=== PATIENT | male | born 1960 | race Two or more races ===

== ENCOUNTER 2017-07-31 19:21 | Emergency (ER) | payer MEDICAID ==
[~2017-07-31] VITALS: Ht 175.3 cm; Wt 82.1 kg
--- NOTE | 2017-07-31 19:30 | NUR ---
PT BIBRA. 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 RR EVEN AND UNLABORED. NO SOB NOTED. NAD NOTE.D NO NVD AT THIS TIME. PT GOWNED AND PLACED ON MONITOR. DR. WALL AT BEDSIDE FOR EVAL. BOBBY EMT AT BEDSIDE TO TRANSLATE.
--- NOTE | 2017-07-31 19:41 | NUR ---
BLOOD DRAWN. CALLED LAB FOR METHODS SPECIALIST.
[2017-07-31 19:51] LABS: BASOPHILS % (AUTO) 0.9 % (0.0-2.0); EOSINOPHILS # (AUTO) 0.1 /CMM (0.0-0.7); EOSINOPHILS % (AUTO) 1.1 % (0.0-6.0); HEMATOCRIT 44 % (39-51); HEMOGLOBIN 14.6 g/dL (13.5-17.5); LYMPHOCYTES # (AUTO) 1.8 /CMM (0.8-4.8); LYMPHOCYTES % (AUTO) 37.2 % (20.0-44.0); MEAN CORPUSCULAR HEMOGLOBIN 29 PG (26.0-33.0); MEAN CORPUSCULAR HGB CONC 33 g/dl (31.0-36.0); MEAN CORPUSCULAR VOLUME 87 fL (80-96); MONOCYTES # (AUTO) 0.4 /CMM (0.1-1.30); NEUTROPHILS # (AUTO) 2.6 /CMM (1.8-8.9); NEUTROPHILS % (AUTO) 51.8 % (43.0-81.0); PLATELET COUNT (AUTO) 194 /CMM (150-450); RDW COEFFICIENT OF VARIATION 13.4 (11.5-15.0); RED BLOOD CELL COUNT(AUTO) 5.11 MIL/uL (4.5-6.0); WHITE BLOOD COUNT (AUTO) 4.9 K/uL (4.3-11.0)
[2017-07-31] MEDS ORDERED: IV NS 0.9% 1,000 ML BAG IV ONE (20:00)
[2017-07-31 20:02] LABS: CALCIUM, SERUM 9.5 mg/dL (8.5-10.1); CARBON DIOXIDE 27 mmol/L (21-32); CHLORIDE 103 mmol/L (98-107); CREATININE 1.1 mg/dL (0.6-1.3); GLUCOSE 157 mg/dL (74-106); POTASSIUM 3.6 mmol/L (3.5-5.1); SODIUM SERUM 138 mmol/L (136-145); UREA NITROGEN, BLOOD 18 mg/dL (7-18)
[2017-07-31 20:08] LABS: ALANINE AMINOTRANSFERASE 14 U/L (12-78); ALBUMIN 3.8 g/dL (3.4-5.0); ALKALINE PHOSPHATASE 76 U/L (46-116); ASPARTATE AMINOTRANSFERASE 14 U/L (15-37); BILIRUBIN,DIRECT 0.1 mg/dL (0.0-0.2); BILIRUBIN,TOTAL 0.5 mg/dL (0.2-1.0); TOTAL PROTEIN, SERUM 7.7 g/dL (6.4-8.2)
[2017-07-31 20:10] LABS: TROPONIN I < 0.017 ng/mL (0.00-0.056)
--- NOTE | 2017-07-31 20:12 | NUR ---
CODE STROKE PAGED.
--- NOTE | 2017-07-31 20:12 | NUR ---
PT TO CT.
--- NOTE | 2017-07-31 20:13 | NUR ---
[facility] CALLED AND SPOKE TO
[2017-07-31] MEDS ORDERED: IOHEXOL-350 100 ML VIAL IV ONE (20:16)
[2017-07-31] MEDS ORDERED: IV NS 0.9% 250 ML IV ONE (20:16)
--- NOTE | 2017-07-31 20:32 | NUR ---
PT RETURNED FROM CT
--- NOTE | 2017-07-31 20:37 | NUR ---
DR. WALL AT BEDSIDE SPEAKING TO PT SON
[2017-07-31] MEDS ORDERED: INTE22PE SQ (21:08)
--- NOTE | 2017-07-31 21:08 | NUR ---
PER FAMILY WILL BEING HIS HOME MEDICATION TOMORROW WHEN THEY VISIT.
--- NOTE | 2017-07-31 21:25 | NUR ---
PT ASSIGNED TO [facility] BED [id number]
--- NOTE | 2017-07-31 21:26 | NUR ---
PT PASSED SWALLOW EVAL. DR WALL MADE AWARE
--- NOTE | 2017-07-31 21:30 | NUR ---
REPORT GIVEN TO CAROL MARCANO FOR DEANDRA.
--- NOTE | 2017-07-31 21:57 | NUR ---
DR. WALL SPEAKING TO DR. ARIAS REGARDING ADMISSION
--- NOTE | 2017-07-31 22:32 | NUR ---
[facility] TO [facility] . WAITING FOR CALLBACK
--- NOTE | 2017-08-01 02:41 | NUR ---
SPOKE TO SIRENA [facility]ULL[facility], PER DAVID VASQUEZ WORKING ON BED WITH [facility].
--- NOTE | 2017-08-01 04:16 | NUR ---
CALLED [facility] [phone] TO F/U TRANSFER UPDATE TO [facility]. SPOKE TO SIRENA, INFORMED TO WAIT FOR CALL BACK FROM [facility].
--- NOTE | 2017-08-01 04:27 | NUR ---
SPOKE TO JONI, NO CHANGE IN UPDATE ON TRANSFERRING PT TO [facility].
--- NOTE | 2017-08-01 07:28 | NUR ---
REPORT GIVEN TO CAROL LOPEZ FOR DEANDRA.
--- NOTE | 2017-08-01 08:53 | NUR ---
CALLED [facility] SPOKE TO CHEN . HE WILL UPDATE CM REGARDING TRAN[place] [facility] [place]
--- NOTE | 2017-08-01 10:19 | NUR ---
SPOKE TO TELLO MARIA [phone] HE WILL CALL BACK FOR [facility] ROOM NUMBER. ACCEPTING MD THIS AM DR CHOUDHARY [phone]. REPORT WAS GIVEN TO BERNARD LAST NIGHT
--- NOTE | 2017-08-01 11:13 | NUR ---
silvana information developer spoke with dr fraire informing him that case management social worker is unable to find a facility to admit him and family decided to leave AMA.
--- NOTE | 2017-08-01 11:16 | NUR ---
Patient does not wish to proceed with medical care recommended by Dr. PLASCENCIA). Patient given information related to possible complications, up to and including , which could occur as a result of leaving the hospital at this time. Patient verbalizes understanding of risks involved due to leaving against medical advice. Patient has signed AMA form.
--- NOTE | 2017-08-01 11:16 | NUR ---
IV removed. Catheter intact and site benign. Pressure and 4x4 applied to site. No bleeding noted.
[2017-08-01 11:51] VITALS: BP 107/67
== END 2017-08-01 11:53 | disposition left against medical advice (07) ==
LOC: ER 19:27
DX: G93.40 Encephalopathy, unspecified (principal); G35 Multiple sclerosis; R53.1 Weakness; I10 Essential (primary) hypertension; F17.200 Nicotine dependence, unspecified, uncomplicated; M48.061 Spinal stenosis, lumbar region without neurogenic claudication; Z86.73 Personal history of transient ischemic attack (TIA), and cerebral infarction without residual deficits
CPT/HCPCS: 36415; 70450; 70496; 70498; 71010; 72131; 80048; 80076; 82962; 84484; 85025; 87081; 93005; 96360; 99291; A4606; J7030; J7050; Q9967; Z7610